=== PATIENT | female | born 1935 | race Caucasian/White ===

== ENCOUNTER → 2016-06-01 | Outpatient (CLI) | payer OTHER ==
[~2016-06-01] MED LIST: GADOBUTROL 10 ML VIAL IVP ONE
[2016-06-01 10:35] LABS: CREATININE 0.7 mg/dL (0.6-1.0); GLOMERULAR FILTRATION RATE > 60
--- NOTE | 2016-06-01 13:39 | MR ---
MRI breasts bilateral without and with contrast. HISTORY: History of lumpectomy for breast cancer left breast in the December 2015. ICD-10 code C50.412. Technique: Precontrast sagittal fat-saturated T2-weighted and Vibrant images of both breasts were ob tained. Subsequently, during intravenous administration of 5 mL Gadavist, multiphasic sagittally acq uired Vibrant MR images through both breasts were obtained. In addition, high resolution axial image s were obtained in the axial plane pre and post contrast. Data was sent to [facility] for additional an alysis including 3D reconstruction, computer-aided detection (CAD), and color-coded phase contrast en hancement evaluation. FINDINGS: No significant background enhancement is seen in either breast. No evidence for mass or abn ormal enhancement to indicate invasive breast carcinoma. No evidence for abnormal fluid collection. N o significant axillary or internal mammary lymph nodes. IMPRESSION: Negative. BI-RADS 1. Recommendation: Recommend annual screening mammography.
== END ==
LOC: FIMAGING 09:39
PROVIDERS: ATTEND Surgery
DX: C50.412 Malignant neoplasm of upper-outer quadrant of left female breast (principal)
CPT/HCPCS: 0159T; A9585; C8908

== ENCOUNTER 2016-07-29 08:57 | Day surgery (SDC) | payer OTHER ==
[~2016-07-29 08:57] MED LIST changes: +BUPIVACAINE 0.5% 30 ML SDV ONE; -GADOBUTROL 10 ML VIAL IVP ONE; +THROMBIN (BOVINE) 5,000 UNIT VIAL TP ONE; +ceFAZolin 2 GM/DEXTROSE 100 ML IV ONE
[2016-07-29] MEDS ORDERED: LIDOCAINE 1% 2 ML INJ ONE (09:40)
[2016-07-29] MEDS ORDERED: CEFAZOLIN 2 GM/DEXTROSE/100 ML BAG IV ONE (09:40)
[2016-07-29] MEDS ORDERED: MIDAZOLAM 2 MG/2 ML VIAL ONE (12:43)
[2016-07-29] MEDS ORDERED: PROPOFOL 200 MG/20 ML VIAL ONE (12:44)
[2016-07-29] MEDS ORDERED: fentaNYL 100 MCG/2 ML INJ ONE ×4 (12:44→15:42)
[2016-07-29] MEDS ORDERED: LIDOCAINE 2% 100 MG/5 ML SYR ONE (12:44)
== END 2016-07-29 17:10 | disposition home or self-care (01) ==
LOC: FSGY 08:57
PROVIDERS: ATTEND Surgery
DX: C50.412 Malignant neoplasm of upper-outer quadrant of left female breast (principal); Z17.0 Estrogen receptor positive status [ER+]
CPT/HCPCS: 19120; 38525; 78195; A9520; J0690; J2001; J2250; J2704; J3010